=== PATIENT | female | born 1975 ===

== ENCOUNTER 2018-02-22 18:33 | Emergency (ER) | payer SELFPAY ==
[2018-02-22 19:14] VITALS: BP 123/80; RESP 18; TEMP 98.4; O2SAT 98
[2018-02-22 20:07] LABS: BASO # 0.1 K/uL (0.0-0.2); BASO % 0.8 % (0.0-2.0); EOS # 0.1 K/uL (0.0-0.7); EOS % 1.7 % (0.0-4.0); HEMOGLOBIN 14.7 g/dL (12.0-16.0); LYMPH # 2.8 K/uL (1.0-4.3); LYMPH % 37.4 % (20.0-40.0); MEAN CORPUSCULAR HEMOGLOBIN 30.2 pg (27.0-31.0); MEAN PLATELET VOLUME 7.3 fl (7.2-11.7); MONO # 0.5 K/uL (0.0-0.8); MONO % 7.2 % (0.0-10.0); NEUT % 52.9 % (50.0-75.0); NRBC % 0.1 % (0.0-0.0); RBC 4.86 Mil/uL (3.80-5.20); RED CELL DISTRIBUTION WIDTH 13.2 % (11.5-14.5); WHITE BLOOD COUNT 7.6 K/uL (4.8-10.8)
[2018-02-22 20:11] LABS: SQUAMOUS EPITHIAL 2 /hpf (0-5); URINE BACTERIA OCC (<OCC); URINE BILIRUBIN NEGATIVE (NEGATIVE); URINE BLOOD SMALL (NEGATIVE); URINE CLARITY CLOUDY (Clear); URINE COLOR YELLOW (YELLOW); URINE GLUCOSE (UA) NEG (Normal); URINE LEUKOCYTE ESTERASE NEG Leu/uL (Negative); URINE PROTEIN NEGATIVE (NEGATIVE); URINE UROBILINOGEN 0.2-1.0 mg/dL (0.2-1.0)
--- NOTE | 2018-02-22 20:12 | ED PDOC ---
Syncope/Near Syncope/Dizziness Time Seen by Provider: 02/22/18 19:25 Chief Complaint (Nursing): Weakness/Neurological Deficit Chief Complaint (Provider): Weakness/Neurological Deficit History Per: Patient History/Exam Limitations: no limitations Onset/Duration Of Symptoms: Days (x1) Current Symptoms Are (Timing): Still Present Additional Complaint(s): 43 year old female presents to ED for an evaluation of dizziness associated with left-sided chest pain, generalized weakness, and left-sided headaches since 1400 today. She additionally reports feeling stressed out at work recently with brief episode of left arm tingling sensation which had resolved on its own. Otherwise, she denies any LOC or shortness of breath. PCP: Dr. Paulette Thomson Past Medical History Reviewed: Historical Data, Nursing Documentation, Vital Signs Vital Signs: Last Vital Signs Temp 98.4 F 02/22/18 19:10 Pulse 86 02/22/18 19:10 Resp 18 02/22/18 19:10 BP 123/80 02/22/18 19:10 Pulse Ox 98 02/22/18 19:10 - Medical History PMH: No Chronic Diseases - Surgical History Surgical History: Denies: No Surg Hx Other surgeries: thyroidectomy - Family History Family History: States: Unknown Family Hx - Home Medications Home Medications: Ambulatory Orders Medication Instructions Recorded Nitrofurantoin Macrocrystals 100 mg PO BID #14 cap 02/22/18 [Macrobid] - Allergies Allergies/Adverse Reactions: Allergies Allergy/AdvReac Type Severity Reaction Status Date / Time No Known Allergies Allergy Verified 02/22/18 19:10 Review of Systems ROS Statement: Except As Marked, All Systems Reviewed And Found Negative Constitutional: Positive for: Weakness (generalized) Cardiovascular: Positive for: Chest Pain (left-sided) Respiratory: Negative for: Shortness of Breath Musculoskeletal: Positive for: Other (left arm paraesthesia) Neurological: Positive for: Headache (left-sided), Dizziness. Negative for: Other (LOC) Psych: Positive for: Anxiety (stressed) Physical Exam - Reviewed Nursing Documentation Reviewed: Yes Vital Signs Reviewed: Yes - Physical Exam Appears: Positive for: Non-toxic, No Acute Distress Head Exam: Positive for: ATRAUMATIC, NORMAL INSPECTION, NORMOCEPHALIC Skin: Positive for: Normal Color Eye Exam: Positive for: Normal appearance, EOMI, PERRL ENT: Positive for: Normal ENT Inspection Neck: Positive for: Normal Cardiovascular/Chest: Positive for: Regular Rate, Rhythm Respiratory: Positive for: Normal Breath Sounds. Negative for: Respiratory Distress Neurologic/Psych: Positive for: Alert, dental nurse II-XII (grossly intact), Oriented, Gait (steady, unassisted). Negative for: Motor/Sensory Deficits, Aphasia - Laboratory Results Result Diagrams: 02/22/18 19:57 02/22/18 19:57 Urine POC: Negative - ECG ECG: Positive for: Interpreted By Me, Viewed By Me ECG Rhythm: Positive for: Normal QRS, Normal ST Segment, Sinus Rhythm Rate: 79 O2 Sat by Pulse Oximetry: 98 (RA) Pulse Ox Interpretation: Normal - Progress Re-evaluation Time: 22:15 Condition: Re-examined, Improved Medical Decision Making Medical Decision Making: Initial Impression: Dizziness; Chest pain; Headache Differential Diagnosis: Atypical ACS; migraines; vertigo; anemia; anxiety Initial Plan: * CT head without contrast * EKG * Labs * Antivert 25mg PO Time: 2009 --UA: indicative for UTI. Time: 2151 --CT head Findings: The ventricles and sulci are symmetric bilaterally. There is no evidence of acute hemorrhage or infarct. There is no midline shift, mass effect, or extra- axial fluid collection. The osseous structures are unremarkable. The visualized paranasal sinuses and mastoid air cells are clear. Impression: Negative study - Scribe Attestation: Documented by Nancy Malhotra, acting as a scribe for Joel Cartagena MD. Provider Scribe Attestation: All medical record entries made by the Scribe were at my direction and personally dictated by me. I have reviewed the chart and agree that the record accurately reflects my personal performance of the history, physical exam, medical decision making, and the department course for this patient. I have also personally directed, reviewed, and agree with the discharge instructions and disposition. Disposition - Clinical Impression Clinical Impression: UTI (urinary tract infection), Dizziness - Patient ED Disposition Is Patient to be Admitted: No Doctor Will See Patient In The: Office Counseled Patient/Family Regarding: Studies Performed, Diagnosis, Need For Followup - Disposition Referrals: [facility] [Outside] Disposition: Routine/Home Disposition Time: 22:17 Condition: GOOD Additional Instructions: MARIA E NOVOA, thank you for letting us take care of you today. Your provider was Joel Cartagena MD and you were treated for DIZZINESS,NAUSEA. The emergency medical care you received today was directed at your acute symptoms. If you were prescribed any medication, please fill it and take as directed. It may take several days for your symptoms to resolve. Return to the Emergency Department if your symptoms worsen, do not improve, or if you have any other problems. Please contact your doctor or call one of the physicians/clinics you have been referred to that are listed on the Patient Visit Information form that is included in your discharge packet. Bring any paperwork you were given at discharge with you along with any medications you are taking to your follow up visit. Our treatment cannot replace ongoing medical care by a primary care provider outside of the emergency department. Thank you for allowing the [facility] team to be part of your care today. If you had an X-Ray or CT scan: A Radiologist will review the ED reading if any change in treatment is needed we will contact you. If you had a blood, urine, or wound culture: It will take several days for the results, if any change in treatment is needed we will contact you. If you had an STI test: It will take 48 hours for the results. Please call after 1 week if you have not heard back. Prescriptions: Nitrofurantoin Macrocrystals [Macrobid] 100 mg PO BID #14 cap Instructions: Urinary Tract Infections in Adults, Dizziness, Nonvertigo, (DC) Forms: [employer] (Slovak) Print Language: GUYANESE FAITH Risk Score for UA/NSTEMI - FAITH Risk Score Age > 64: NO 3 or more CAD Risk Factors: NO Known CAD (Stenosis greater than 50%): NO Aspirin use in past 7 days: NO Severe Angina: NO EKG ST changes greater than 0.5mm: NO Positive Cardiac Marker: NO FAITH Score: 0 Risk %: 5%
[2018-02-22 20:18] LABS: BLOOD UREA NITROGEN 14 mg/dl (7-17); CALCIUM 9.1 mg/dL (8.4-10.2); GFR NON-AFRICAN AMERICAN > 60
[2018-02-22 20:41] VITALS: PULSE 79
--- NOTE | 2018-02-23 08:59 | CT ---
Date of service: 02/22/2018 PROCEDURE: CT HEAD WITHOUT CONTRAST. HISTORY: DIZZINESS COMPARISON: None available. TECHNIQUE: Axial computed tomography images were obtained through the head/brain without intravenous contrast. Radiation dose: Total exam DLP = 664.08 mGy-cm. This CT exam was performed using one or more of the following dose reduction techniques: Automated exposure control, adjustment of the mA and/or kV according to patient size, and/or use of iterative reconstruction technique. FINDINGS: HEMORRHAGE: No intracranial hemorrhage. BRAIN: No mass effect or edema. No atrophy or chronic microvascular ischemic changes. VENTRICLES: Unremarkable. No hydrocephalus. CALVARIUM: Unremarkable. PARANASAL SINUSES: Unremarkable as visualized. No significant inflammatory changes. MASTOID AIR CELLS: Unremarkable as visualized. No inflammatory changes. OTHER FINDINGS: None. IMPRESSION: Normal CT of the Head. Concordant results (preliminary interpretation) provided by [facility].
--- NOTE | 2018-02-23 10:46 | CARD ---
APPROVED REPORT Date of service: 02/22/2018 EKG Measurement Heart [id number] <Conclusion> Normal sinus rhythm Incomplete RBBB Borderline ECG
== END 2018-02-22 22:37 | disposition home or self-care (01) ==
LOC: H.ER 18:33
DX: N39.0 Urinary tract infection, site not specified (principal); R42 Dizziness and giddiness

== ENCOUNTER 2018-07-19 03:45 | Emergency (ER) | payer BC ==
[2018-07-19] MEDS ORDERED: Iohexol 240 (50 ml) PO ONE (04:36)
--- NOTE | 2018-07-19 04:39 | ED PDOC ---
HPI: Abdomen Time Seen by Provider: 07/19/18 04:01 Chief Complaint (Nursing): Abdominal Pain Chief Complaint (Provider): abdominal pain History Per: Patient, Family (bryan #[id number]) History/Exam Limitations: no limitations Location Of Pain/Discomfort: LLQ, Suprapubic Quality Of Discomfort: Sharp Last Bowel Movement: Today Additional Complaint(s): 43 y/o female presents for evaluation of abdominal pain and low back pain x 2 days. Denies fever, nausea/vomiting, chest pain, changes in bowel movements, urinary symptoms, vaginal bleeding/discharge. No medications taken for relief thus far Past Medical History Reviewed: Historical Data, Nursing Documentation, Vital Signs Vital Signs: Last Vital Signs Temp 98.1 F 07/19/18 04:18 Pulse 84 07/19/18 04:18 Resp 16 07/19/18 04:18 BP 134/86 07/19/18 04:18 Pulse Ox 99 07/19/18 04:18 - Medical History PMH: No Chronic Diseases - Surgical History Surgical History: No Surg Hx - Family History Family History: States: Unknown Family Hx - Living Arrangements Living Arrangements: With Family - Home Medications Home Medications: Ambulatory Orders Medication Instructions Recorded Nitrofurantoin Macrocrystals 100 mg PO BID #14 cap 02/22/18 [Macrobid] - Allergies Allergies/Adverse Reactions: Allergies Allergy/AdvReac Type Severity Reaction Status Date / Time No Known Allergies Allergy Verified 02/22/18 19:10 Review of Systems ROS Statement: Except As Marked, All Systems Reviewed And Found Negative Gastrointestinal: Positive for: Abdominal Pain Musculoskeletal: Positive for: Back Pain Physical Exam - Reviewed Nursing Documentation Reviewed: Yes Vital Signs Reviewed: Yes - Physical Exam Appears: Positive for: Well, Non-toxic, No Acute Distress Head Exam: Positive for: ATRAUMATIC, NORMAL INSPECTION, NORMOCEPHALIC Skin: Positive for: Normal Color Eye Exam: Positive for: Normal appearance ENT: Positive for: Normal ENT Inspection Cardiovascular/Chest: Positive for: Regular Rate, Rhythm Respiratory: Positive for: Normal Breath Sounds Gastrointestinal/Abdominal: Positive for: Bowel Sounds, Soft, Tenderness (sup rapubic, LLQ; no flank tenderness bilaterally) Back: Positive for: Normal Inspection. Negative for: L CVA Tenderness, R CVA Tenderness Extremity: Positive for: Normal ROM Neurological/Psych: Positive for: Awake, Alert, Oriented (x3) - Laboratory Results Result Diagrams: 07/19/18 04:45 07/19/18 04:45 - ECG O2 Sat by Pulse Oximetry: 99 - Progress ED Course And Treament: -upreg -udip -cbc -cmp -urinalysis -CT abd/pelvis -IV toradol Disposition - Clinical Impression Clinical Impression: Abdominal pain - Disposition Referrals: Trinidad Ayala MD [Primary Care Provider] - Disposition Time: 06:00 Condition: STABLE Forms: [employer] (Italian) Patient Signed Over To: aMdhu Long Handoff Comments: pending CT, re-eval
[2018-07-19 04:58] LABS: SQUAMOUS EPITHIAL 1 /hpf (0-5); URINE BILIRUBIN NEGATIVE (NEGATIVE); URINE BLOOD SMALL (NEGATIVE); URINE CLARITY CLEAR (Clear); URINE COLOR YELLOW (YELLOW); URINE GLUCOSE (UA) NEG (NEGATIVE); URINE LEUKOCYTE ESTERASE NEG Leu/uL (Negative); URINE PROTEIN NEGATIVE (NEGATIVE); URINE UROBILINOGEN 0.2-1.0 mg/dL (0.2-1.0)
[2018-07-19 04:59] LABS: BASO % 0.4 % (0.0-2.0); EOS # 0.1 K/uL (0.0-0.7); EOS % 0.7 % (0.0-4.0); LYMPH % 36.3 % (20.0-40.0); MEAN CELL VOLUME 89.1 fl (81.0-99.0); MEAN CORPUSCULAR HEMOGLOBIN 30.6 pg (27.0-31.0); MEAN CORPUSCULAR HGB CONC 34.3 g/dL (33.0-37.0); MEAN PLATELET VOLUME 7.3 fl (7.2-11.7); MONO # 0.6 K/uL (0.0-0.8); MONO % 7.2 % (0.0-10.0); NEUT # 4.6 K/uL (1.8-7.0); NEUT % 55.4 % (50.0-75.0); NRBC % 0.1 % (0.0-0.0); RBC 4.58 Mil/uL (3.80-5.20); WHITE BLOOD COUNT 8.4 K/uL (4.8-10.8)
[2018-07-19] MEDS ORDERED: Iohexol 240 (50 ml) ONE (05:10)
[2018-07-19 05:13] LABS: ALB/GLOB RATIO 1.2 (1.0-2.1); ALBUMIN 4.1 g/dL (3.5-5.0); ALT/SGPT 26 U/L (9-52); AST/SGOT 26 U/L (14-36); BLOOD UREA NITROGEN 17 mg/dl (7-17); CALCIUM 8.7 mg/dL (8.4-10.2); GFR NON-AFRICAN AMERICAN > 60
--- NOTE | 2018-07-19 07:17 | ED PDOC ---
- Laboratory Results Result Diagrams: 07/19/18 04:45 07/19/18 04:45 Lab Results: Total Bilirubin 0.7 mg/dl (0.2-1.3) 07/19/18 04:45 AST 26 U/L (14-36) 07/19/18 04:45 ALT 26 U/L (9-52) 07/19/18 04:45 Alkaline Phosphatase 55 U/L (38-126) 07/19/18 04:45 Total Protein 7.5 G/DL (6.3-8.2) 07/19/18 04:45 Albumin 4.1 g/dL (3.5-5.0) 07/19/18 04:45 Globulin 3.4 gm/dL (2.2-3.9) 07/19/18 04:45 Albumin/Globulin Ratio 1.2 (1.0-2.1) 07/19/18 04:45 Urine Color Yellow (YELLOW) 07/19/18 04:46 Urine Clarity Clear (Clear) 07/19/18 04:46 Urine pH 6.0 (5.0-8.0) 07/19/18 04:46 Ur Specific [place] 1.023 (1.003-1.030) 07/19/18 04:46 Urine Protein Negative mg/dL (NEGATIVE) 07/19/18 04:46 Urine Glucose (UA) Neg mg/dL (NEGATIVE) 07/19/18 04:46 Urine Ketones Negative mg/dL (NEGATIVE) 07/19/18 04:46 Urine Blood Small (NEGATIVE) 07/19/18 04:46 Urine Nitrate Negative (NEGATIVE) 07/19/18 04:46 Urine Bilirubin Negative (NEGATIVE) 07/19/18 04:46 Urine Urobilinogen 0.2-1.0 mg/dL (0.2-1.0) 07/19/18 04:46 Ur Leukocyte Esterase Neg Baldev/uL (Negative) 07/19/18 04:46 Urine RBC (Auto) 4 /hpf (0-3) H 07/19/18 04:46 Urine Microscopic WBC < 1 /hpf (0-5) 07/19/18 04:46 Ur Squamous Epith Cells 1 /hpf (0-5) 07/19/18 04:46 - ECG O2 Sat by Pulse Oximetry: 99 (RA) Pulse Ox Interpretation: Normal Medical Decision Making Medical Decision Makin:00 Patient care endorsed to Dr. Craig from Dr. Long pending CT scan. 09:55 PROCEDURE: CT Abdomen and Pelvis with contrast HISTORY: left lower abd pain COMPARISON: None. TECHNIQUE: Contrast dose: 95 cc Omnipaque 300 Radiation dose: Total exam DLP = 314.94 mGy-cm. This CT exam was performed using one or more of the following dose reduction techniques: Automated exposure control, adjustment of the mA and/or kV according to patient size, and/or use of iterative reconstruction technique. FINDINGS: LOWER THORAX: Unremarkable. LIVER: Unremarkable. No gross lesion or ductal dilatation. GALLBLADDER AND BILE DUCTS: Unremarkable. PANCREAS: Unremarkable. No gross lesion or ductal dilatation. SPLEEN: Unremarkable. ADRENALS: Unremarkable. No mass. KIDNEYS AND URETERS: Unremarkable. No hydronephrosis. No solid mass. VASCULATURE: Unremarkable. No aortic aneurysm. No aortic atherosclerotic calcification or mural plaque present. BOWEL: Unremarkable. No obstruction. No gross mural thickening. APPENDIX: Normal appendix. PERITONEUM: Unremarkable. No free fluid. No free air. LYMPH NODES: Unremarkable. No enlarged lymph nodes. BLADDER: Unremarkable. REPRODUCTIVE: Unremarkable uterus. Incidental 1.6 cm left ovarian cyst, presumed physiologic. BONES: No acute fracture. OTHER FINDINGS: None. IMPRESSION: Unremarkable examination. No evidence of diverticulitis. 1.6 cm left ovarian cyst incidentally noted. Otherwise unremarkable. 10:10 Labs present no clinically significant abnormalities. Pain resolved and patient needs to follow up with PMD/medical secretary teacher for the cyst. it is small but i told her to follow up; Upon provider reevaluation patient is feeling better, is medically stable, and requires no further treatment in the ED at this time. Patient will be discharged home. Counseling was provided and all questions were answered regarding diagnosis and need for follow up with PMD. There is agreement to discharge plan. Return if symptoms persist or worsen. Scribe Attestation: Documented by Reyna Franklin, acting as a scribe for Shaila Craig MD. Provider Scribe Attestation: All medical record entries made by the Scribe were at my direction and personally dictated by me. I have reviewed the chart and agree that the record accurately reflects my personal performance of the history, physical exam, medical decision making, and the department course for this patient. I have also personally directed, reviewed, and agree with the discharge instructions and disposition. Disposition Counseled Patient/Family Regarding: Studies Performed, Diagnosis, Need For Followup - Clinical Impression Clinical Impression: Abdominal pain, Abdominal pain in female - POA Present On Arrival: None - [facility] Trinidad Ayala MD [Primary Care Provider] - Disposition: Routine/Home Disposition Time: 10:10 Condition: IMPROVED Additional Instructions: follow up with the clinic in 2 days; also follow up for ovarian cyst return to the ED with any worsening or concerning symptoms Instructions: Ovarian Cysts, Low Back Pain (DC), Stomach Ache and Stomach Upset Forms: [employer] (Kazakh)
[2018-07-19] MEDS ORDERED: Iohexol 300 100 ML IJ ONE (08:17)
[2018-07-19 09:22] VITALS: BP 119/78; PULSE 70; RESP 19; TEMP 97.8
--- NOTE | 2018-07-19 09:58 | CT ---
Date of service: 07/19/2018 PROCEDURE: CT Abdomen and Pelvis with contrast HISTORY: left lower abd pain COMPARISON: None. TECHNIQUE: Contrast dose: 95 cc Omnipaque 300 Radiation dose: Total exam DLP = 314.94 mGy-cm. This CT exam was performed using one or more of the following dose reduction techniques: Automated exposure control, adjustment of the mA and/or kV according to patient size, and/or use of iterative reconstruction technique. FINDINGS: LOWER THORAX: Unremarkable. LIVER: Unremarkable. No gross lesion or ductal dilatation. GALLBLADDER AND BILE DUCTS: Unremarkable. PANCREAS: Unremarkable. No gross lesion or ductal dilatation. SPLEEN: Unremarkable. ADRENALS: Unremarkable. No mass. KIDNEYS AND URETERS: Unremarkable. No hydronephrosis. No solid mass. VASCULATURE: Unremarkable. No aortic aneurysm. No aortic atherosclerotic calcification or mural plaque present. BOWEL: Unremarkable. No obstruction. No gross mural thickening. APPENDIX: Normal appendix. PERITONEUM: Unremarkable. No free fluid. No free air. LYMPH NODES: Unremarkable. No enlarged lymph nodes. BLADDER: Unremarkable. REPRODUCTIVE: Unremarkable uterus. Incidental 1.6 cm left ovarian cyst, presumed physiologic. BONES: No acute fracture. OTHER FINDINGS: None. IMPRESSION: Unremarkable examination. No evidence of diverticulitis. 1.6 cm left ovarian cyst incidentally noted. Otherwise unremarkable.
[2018-07-19 10:02] VITALS: O2SAT 99
== END 2018-07-19 10:28 | disposition home or self-care (01) ==
LOC: H.ER 03:45
DX: R10.9 Unspecified abdominal pain (principal); N83.202 Unspecified ovarian cyst, left side; R10.2 Pelvic and perineal pain
CPT/HCPCS: 74177; 80053; 81003; 81025; 85025; 87086; 99284; J1885; Q9966; Q9967